=== PATIENT | male | born 1960 | race Two or more races ===

== ENCOUNTER 2023-05-07 11:41 | Inpatient (IN) | payer OTHER ==
[2023-05-07 12:30] VITALS: BMI 31.3
[2023-05-07] MEDS ORDERED: BISMUTH SUBSALICYLATE 524 MG/30 ML PO PRN (13:14)
[2023-05-07] MEDS ORDERED: ACETAMINOPHEN 325 MG TABLET (FP) PO PRN (13:14)
[2023-05-07] MEDS ORDERED: LOPERAMIDE HCL 2 MG CAPSULE PO PRN (13:14)
[2023-05-07] MEDS ORDERED: NALOXONE HCL 0.4 MG/ML VIAL IM PRN (13:14)
[2023-05-07] MEDS ORDERED: POLYETHYLENE GLYCOL (HEALTHYLAX) 3350 17 GM PACKET PO PRN (13:14)
[2023-05-07] MEDS ORDERED: IBUPROFEN 600 MG TABLET (FP) PO PRN (13:14)
[2023-05-07] MEDS ORDERED: IBUPROFEN 400 MG TABLET (FP) PO PRN (13:14)
[2023-05-07] MEDS ORDERED: NALOXONE HCL (KLOXXADO) 8 MG SPRAY NS PRN (13:14)
[2023-05-07] MEDS ORDERED: NICOTINE 10 MG CARTRIDGE (INHALER) IH PRN (13:14)
[2023-05-07] MEDS ORDERED: MAGNESIUM HYDROX 2400MG/30ML ORAL SUSPENSION 30 ML CUP PO PRN (13:14)
[2023-05-07] MEDS ORDERED: BENZONATATE 200 MG CAPSULE PO PRN (13:14)
[2023-05-07] MEDS ORDERED: ONDANSETRON *ODT* 4 MG TABLET SL PRN (13:14)
[2023-05-07] MEDS ORDERED: guaiFENesin 600 MG TABLET.ER (FP) PO PRN (13:14)
[2023-05-07] MEDS ORDERED: NICOTINE POLACRILEX 4 MG GUM BUC PRN (13:14)
[2023-05-07] MEDS ORDERED: BENZOCAINE/MENTHOL (CHLORASEPTIC ) LOZENGE MM PRN (13:14)
[2023-05-07] MEDS ORDERED: DICYCLOMINE HCL 10 MG CAPSULE PO PRN (13:14)
[2023-05-07] MEDS ORDERED: NICOTINE 21 MG/24 HOURS TOPICAL PATCH ONE (14:07)
[2023-05-07] MEDS ORDERED: PRENATAL VITAMINS W/ FOLIC ACID TABLET (FP) PO ONE (14:08)
[2023-05-07] MEDS: PRENATAL VITAMINS W/ FOLIC ACID TABLET (FP) PO SCH (14:12)
[2023-05-07] MEDS: NICOTINE 21 MG/24 HOURS TOPICAL PATCH TD SCH (14:12)
[2023-05-07] MEDS: BACITRACIN 0.9 GM PACKET TP SCH ×2 (14:38→22:41)
[2023-05-07] MEDS: THIAMINE HCL 100 MG TABLET (FP) PO SCH (22:41)
[2023-05-07] MEDS: MELATONIN 5 MG TABLETS PO SCH (22:41)
[2023-05-07] MEDS: METHOCARBAMOL 500 MG TABLET PO PRN (22:41)
[2023-05-08] MEDS: METHOCARBAMOL 500 MG TABLET PO PRN (05:48)
[2023-05-08] MEDS ORDERED: methaDONE HCL 10 MG TABLET PO ONE (07:49)
[2023-05-08] MEDS ORDERED: methaDONE 40 MG, methaDONE 10 MG PO SCH (08:45)
[2023-05-08] MEDS: PRENATAL VITAMINS W/ FOLIC ACID TABLET (FP) PO SCH (09:19)
[2023-05-08] MEDS: BACITRACIN 0.9 GM PACKET TP SCH ×2 (09:19→22:31)
[2023-05-08] MEDS ORDERED: chlordiazePOXIDE HCL 25 MG CAPSULE PO PRN (09:26)
[2023-05-08] MEDS: NICOTINE 21 MG/24 HOURS TOPICAL PATCH TD SCH (10:16)
[2023-05-08 10:39] LABS: HEMATOCRIT 40.9 % (35.4-49); HEMOGLOBIN 13.9 GM/dL (11.7-16.9); MCH 30.6 pg (25.7-33.7); MCHC 34.1 g/dl (32.0-35.9); MEAN CELL VOLUME 89.7 fl (80-96); MEAN PLT VOLUME 9.1 fl (7.5-11.1); PLATELET COUNT 250 10^3/uL (134-434); RBC 4.55 M/mm3 (4.00-5.60); RDW 13.9 % (11.9-15.9); WHITE BLOOD COUNT 8.2 K/mm3 (4.0-10.0)
[2023-05-08 10:47] LABS: POTASSIUM 3.4 mmol/L (3.5-5.1)
[2023-05-08 11:00] LABS: CALCIUM 9.4 mg/dL (8.5-10.1)
[2023-05-08 11:01] LABS: ALBUMIN 3.5 g/dl (3.4-5.0); BLOOD UREA NITROGEN 9.9 mg/dL (7-18)
[2023-05-08 11:04] LABS: CREATININE 0.9 mg/dL (0.55-1.3)
[2023-05-08 11:05] LABS: BILIRUBIN,TOTAL 0.5 mg/dL (0.2-1)
[2023-05-08 11:06] LABS: TOT PROT 7.5 g/dl (6.4-8.2)
[2023-05-08] MEDS: chlordiazePOXIDE HCL 25 MG CAPSULE PO SCH ×3 (11:07→22:32)
[2023-05-08] MEDS: MELATONIN 5 MG TABLETS PO SCH (22:32)
[2023-05-08] MEDS: THIAMINE HCL 100 MG TABLET (FP) PO SCH (22:32)
[2023-05-08] MEDS: MAG HYDROX/AL HYDROX/SIMETH 30 ML UNIT-DOSE CUP PO PRN (23:37)
[2023-05-09] MEDS: chlordiazePOXIDE HCL 25 MG CAPSULE PO SCH ×4 (05:20→22:16)
[2023-05-09] MEDS: methaDONE 40 MG, methaDONE 10 MG PO SCH (05:21)
[2023-05-09] MEDS ORDERED: methaDONE HCL 10 MG TABLET PO SCH (06:00)
[2023-05-09] MEDS: BACITRACIN 0.9 GM PACKET TP SCH ×2 (10:13→22:15)
[2023-05-09] MEDS: PRENATAL VITAMINS W/ FOLIC ACID TABLET (FP) PO SCH (10:13)
[2023-05-09] MEDS: NICOTINE 21 MG/24 HOURS TOPICAL PATCH TD SCH (10:15)
[2023-05-09] MEDS ORDERED: POTASSIUM CHLORIDE ORAL LIQUID 20 MEQ/15 ML PO ONE (13:42)
[2023-05-09] MEDS: THIAMINE HCL 100 MG TABLET (FP) PO SCH (22:16)
[2023-05-09] MEDS: MELATONIN 5 MG TABLETS PO SCH (22:16)
[2023-05-09] MEDS: METHOCARBAMOL 500 MG TABLET PO PRN (22:19)
[2023-05-10] MEDS: MAG HYDROX/AL HYDROX/SIMETH 30 ML UNIT-DOSE CUP PO PRN ×2 (01:16→21:46)
[2023-05-10] MEDS: methaDONE 40 MG, methaDONE 10 MG PO SCH (05:23)
[2023-05-10] MEDS: chlordiazePOXIDE HCL 25 MG CAPSULE PO SCH ×4 (05:23→22:24)
[2023-05-10] MEDS: BACITRACIN 0.9 GM PACKET TP SCH ×2 (10:33→22:23)
[2023-05-10] MEDS: PRENATAL VITAMINS W/ FOLIC ACID TABLET (FP) PO SCH (10:33)
[2023-05-10] MEDS: NICOTINE 21 MG/24 HOURS TOPICAL PATCH TD SCH (10:35)
[2023-05-10] MEDS: LISINOPRIL 20 MG TABLET PO SCH (14:37)
[2023-05-10] MEDS: ABACAVIR/DOLUTEGRAVIR/LAMIVUDI (TRIUMEQ) TABLET PO SCH (14:45)
[2023-05-10] MEDS: THIAMINE HCL 100 MG TABLET (FP) PO SCH (22:24)
[2023-05-10] MEDS: MELATONIN 5 MG TABLETS PO SCH (22:24)
[2023-05-11] MEDS ORDERED: chlordiazePOXIDE HCL 10 MG CAPSULE PO PRN
[2023-05-11] MEDS: chlordiazePOXIDE HCL 10 MG CAPSULE PO SCH ×4 (05:31→22:35)
[2023-05-11] MEDS: methaDONE 40 MG, methaDONE 10 MG PO SCH (05:31)
[2023-05-11] MEDS: ABACAVIR/DOLUTEGRAVIR/LAMIVUDI (TRIUMEQ) TABLET PO SCH (08:34)
[2023-05-11] MEDS: BACITRACIN 0.9 GM PACKET TP SCH ×2 (10:44→22:34)
[2023-05-11] MEDS: TAMSULOSIN HCL 0.4 MG CAP PO SCH (10:44)
[2023-05-11] MEDS: PRENATAL VITAMINS W/ FOLIC ACID TABLET (FP) PO SCH (10:45)
[2023-05-11] MEDS: NICOTINE 21 MG/24 HOURS TOPICAL PATCH TD SCH (10:45)
[2023-05-11] MEDS: LISINOPRIL 20 MG TABLET PO SCH (10:46)
[2023-05-11] MEDS: amLODIPine BESYLATE 10 MG TABLET (FP) PO SCH (10:46)
[2023-05-11] MEDS: MAG HYDROX/AL HYDROX/SIMETH 30 ML UNIT-DOSE CUP PO PRN (10:52)
[2023-05-11] MEDS: THIAMINE HCL 100 MG TABLET (FP) PO SCH (22:35)
[2023-05-11] MEDS: MELATONIN 5 MG TABLETS PO SCH (22:35)
[2023-05-11] MEDS: METHOCARBAMOL 500 MG TABLET PO PRN (22:35)
[2023-05-12] MEDS: chlordiazePOXIDE HCL 10 MG CAPSULE PO SCH ×2 (05:24→17:32)
[2023-05-12] MEDS: methaDONE 40 MG, methaDONE 10 MG PO SCH (05:25)
[2023-05-12] MEDS: ABACAVIR/DOLUTEGRAVIR/LAMIVUDI (TRIUMEQ) TABLET PO SCH (07:10)
[2023-05-12] MEDS: BACITRACIN 0.9 GM PACKET TP SCH ×2 (10:32→22:47)
[2023-05-12] MEDS: TAMSULOSIN HCL 0.4 MG CAP PO SCH (10:32)
[2023-05-12] MEDS: amLODIPine BESYLATE 10 MG TABLET (FP) PO SCH (10:32)
[2023-05-12] MEDS: LISINOPRIL 20 MG TABLET PO SCH (10:32)
[2023-05-12] MEDS: PRENATAL VITAMINS W/ FOLIC ACID TABLET (FP) PO SCH (10:32)
[2023-05-12] MEDS: NICOTINE 21 MG/24 HOURS TOPICAL PATCH TD SCH (10:33)
[2023-05-12] MEDS: MAG HYDROX/AL HYDROX/SIMETH 30 ML UNIT-DOSE CUP PO PRN ×2 (10:35→19:49)
[2023-05-12 21:06] VITALS: TEMP 97.5
[2023-05-12] MEDS: METHOCARBAMOL 500 MG TABLET PO PRN (22:50)
[2023-05-12] MEDS: THIAMINE HCL 100 MG TABLET (FP) PO SCH (22:51)
[2023-05-12] MEDS: MELATONIN 5 MG TABLETS PO SCH (22:51)
[2023-05-13] MEDS ORDERED: chlordiazePOXIDE HCL 10 MG CAPSULE PO ONE (05:00)
[2023-05-13] MEDS: methaDONE 40 MG, methaDONE 10 MG PO SCH (06:00)
[2023-05-13] MEDS: ABACAVIR/DOLUTEGRAVIR/LAMIVUDI (TRIUMEQ) TABLET PO SCH (07:52)
[2023-05-13 09:26] VITALS: BP 102/68; PULSE 88; RESP 20
[2023-05-13] MEDS: BACITRACIN 0.9 GM PACKET TP SCH (10:12)
[2023-05-13] MEDS: NICOTINE 21 MG/24 HOURS TOPICAL PATCH TD SCH (10:12)
[2023-05-13] MEDS: TAMSULOSIN HCL 0.4 MG CAP PO SCH (10:12)
[2023-05-13] MEDS: PRENATAL VITAMINS W/ FOLIC ACID TABLET (FP) PO SCH (10:12)
[2023-05-13] MEDS: LISINOPRIL 20 MG TABLET PO SCH (10:12)
[2023-05-13] MEDS: amLODIPine BESYLATE 10 MG TABLET (FP) PO SCH (10:12)
== END 2023-05-13 11:25 | disposition other institution (70) | DRG 773 ==
LOC: YASAS 11:41 → Y3N 13:48
PROVIDERS: ADMIT Allergy & Immunology; ATTEND Allergy & Immunology
PROC: HZ2ZZZZ Detoxification Services for Substance Abuse Treatment (ICD-10-PCS; principal; 2023-05-07)
DX: F10.230 Alcohol dependence with withdrawal, uncomplicated (principal); F11.120 Opioid abuse with intoxication, uncomplicated; F14.20 Cocaine dependence, uncomplicated; F12.20 Cannabis dependence, uncomplicated; F17.210 Nicotine dependence, cigarettes, uncomplicated; Z21 Asymptomatic human immunodeficiency virus [HIV] infection status; E87.6 Hypokalemia; I10 Essential (primary) hypertension; Z86.19 Personal history of other infectious and parasitic diseases
CPT/HCPCS: 36415; 80053; 84132; 85027; 86593; 86780; 87635; 87811; Q0162

== ENCOUNTER 2023-05-13 11:03 | Inpatient (IN) | payer OTHER ==
[2023-05-13 11:34] VITALS: RESP 18
[2023-05-13] MEDS ORDERED: BENZONATATE 200 MG CAPSULE PO PRN (14:20)
[2023-05-13] MEDS ORDERED: LOPERAMIDE HCL 2 MG CAPSULE PO PRN (14:20)
[2023-05-13] MEDS ORDERED: IBUPROFEN 400 MG TABLET (FP) PO PRN (14:20)
[2023-05-13] MEDS ORDERED: guaiFENesin 600 MG TABLET.ER (FP) PO PRN (14:20)
[2023-05-13] MEDS ORDERED: IBUPROFEN 600 MG TABLET (FP) PO PRN (14:20)
[2023-05-13] MEDS ORDERED: POLYETHYLENE GLYCOL (HEALTHYLAX) 3350 17 GM PACKET PO PRN (14:20)
[2023-05-13] MEDS ORDERED: MAG HYDROX/AL HYDROX/SIMETH 30 ML UNIT-DOSE CUP PO PRN (14:20)
[2023-05-13] MEDS ORDERED: COLLOIDAL OATMEAL 1 BAR EACH TP PRN (14:20)
[2023-05-13] MEDS ORDERED: NALOXONE HCL (KLOXXADO) 8 MG SPRAY NS PRN (14:20)
[2023-05-13] MEDS ORDERED: BENZOCAINE/MENTHOL (CHLORASEPTIC ) LOZENGE MM PRN (14:20)
[2023-05-13] MEDS ORDERED: NICOTINE 10 MG CARTRIDGE (INHALER) IH PRN (14:20)
[2023-05-13] MEDS ORDERED: NALOXONE HCL 0.4 MG/ML VIAL IVPUSH PRN (14:20)
[2023-05-13] MEDS ORDERED: AMMONIUM LACTATE 12% LOTION 225 GM BOTTLE TP PRN (14:20)
[2023-05-13] MEDS ORDERED: MAGNESIUM HYDROX 2400MG/30ML ORAL SUSPENSION 30 ML CUP PO PRN (14:20)
[2023-05-13] MEDS ORDERED: ACETAMINOPHEN 325 MG TABLET (FP) PO PRN (14:20)
[2023-05-13] MEDS ORDERED: METHOCARBAMOL 500 MG TABLET PO PRN (14:20)
[2023-05-13] MEDS: PRENATAL VITAMINS W/ FOLIC ACID TABLET (FP) PO SCH (14:34)
[2023-05-13] MEDS ORDERED: THIAMINE HCL 100 MG TABLET (FP) PO SCH (22:00)
[2023-05-13] MEDS ORDERED: MELATONIN 5 MG TABLETS PO SCH (22:00)
[2023-05-14] MEDS ORDERED: methaDONE 40 MG, methaDONE 10 MG PO SCH (06:00)
[2023-05-14] MEDS ORDERED: methaDONE HCL 10 MG TABLET PO SCH (06:00)
[2023-05-14 07:20] VITALS: TEMP 97.7
[2023-05-14] MEDS ORDERED: ABACAVIR/DOLUTEGRAVIR/LAMIVUDI (TRIUMEQ) TABLET PO SCH (08:00)
[2023-05-14 09:58] VITALS: BP 107/71; PULSE 97
[2023-05-14] MEDS ORDERED: amLODIPine BESYLATE 10 MG TABLET (FP) PO SCH (10:00)
[2023-05-14] MEDS ORDERED: LISINOPRIL 20 MG TABLET PO SCH (10:00)
[2023-05-14] MEDS ORDERED: BACITRACIN 0.9 GM PACKET TP SCH (10:00)
[2023-05-14] MEDS ORDERED: TAMSULOSIN HCL 0.4 MG CAP PO SCH (10:00)
[2023-05-14] MEDS: PRENATAL VITAMINS W/ FOLIC ACID TABLET (FP) PO SCH (10:29)
== END 2023-05-14 13:14 | disposition left against medical advice (07) | DRG 770 ==
LOC: YASAS 11:03 → Y3E 11:04
PROVIDERS: ADMIT Allergy & Immunology; ATTEND Psychiatry & Neurology Pain Medicine
PROC: HZ42ZZZ Group Counseling for Substance Abuse Treatment, Cognitive-Behavioral (ICD-10-PCS; principal; 2023-05-13)
DX: F10.20 Alcohol dependence, uncomplicated (principal); F14.20 Cocaine dependence, uncomplicated; F11.20 Opioid dependence, uncomplicated; F17.210 Nicotine dependence, cigarettes, uncomplicated; F41.8 Other specified anxiety disorders; Z21 Asymptomatic human immunodeficiency virus [HIV] infection status; I10 Essential (primary) hypertension; R76.8 Other specified abnormal immunological findings in serum; Z86.19 Personal history of other infectious and parasitic diseases; Z59.00 Homelessness unspecified
CPT/HCPCS: 36415; 86803; 87522

== ENCOUNTER 2025-02-27 13:51 | Inpatient (IN) | payer OTHER ==
[2025-02-27 14:28] VITALS: BMI 29.7
[2025-02-27] MEDS ORDERED: BENZOCAINE/MENTHOL (CHLORASEPTIC ) LOZENGE MM PRN (14:47)
[2025-02-27] MEDS ORDERED: guaiFENesin 600 MG TABLET.ER (FP) PO PRN (14:47)
[2025-02-27] MEDS ORDERED: IBUPROFEN 400 MG TABLET (FP) PO PRN (14:47)
[2025-02-27] MEDS ORDERED: BENZONATATE 200 MG CAPSULE PO PRN (14:47)
[2025-02-27] MEDS ORDERED: NICOTINE POLACRILEX 2 MG LOZENGE BC PRN (14:47)
[2025-02-27] MEDS ORDERED: MAGNESIUM HYDROX 2400MG/30ML ORAL SUSPENSION 30 ML CUP PO PRN (14:47)
[2025-02-27] MEDS ORDERED: POLYETHYLENE GLYCOL (HEALTHYLAX) 3350 17 GM PACKET PO PRN (14:47)
[2025-02-27] MEDS ORDERED: ACETAMINOPHEN 325 MG TABLET (FP) PO PRN (14:47)
[2025-02-27] MEDS ORDERED: NALOXONE (NARCAN) HCL 4 MG/0.1 ML SPRAY NS PRN (14:47)
[2025-02-27] MEDS ORDERED: IBUPROFEN 600 MG TABLET (FP) PO PRN (14:47)
[2025-02-27] MEDS ORDERED: LOPERAMIDE HCL 2 MG CAPSULE PO PRN (14:47)
[2025-02-27] MEDS: THIAMINE 100 MG TABLET PO SCH (21:17)
[2025-02-27] MEDS: MELATONIN 5 MG TABLETS PO SCH (21:18)
[2025-02-28 00:29] LABS: PH,URINE 5.5 (5.0-8.0); URINE APPEARANCE CLEAR; URINE BILIRUBIN NEGATIVE (NEGATIVE); URINE COLOR DK YELLOW; URINE GLUCOSE (UA) NEGATIVE (NEGATIVE); URINE KETONE TRACE (NEGATIVE); URINE LEUK ESTERASE NEGATIVE (NEGATIVE); URINE NITRITE NEGATIVE (NEGATIVE); URINE PROTEIN TRACE (NEGATIVE)
[2025-02-28] MEDS: TAMSULOSIN HCL 0.4 MG CAP PO SCH (07:59)
[2025-02-28 09:45] LABS: HEMATOCRIT 44.3 % (40.1-51.0); HEMOGLOBIN 14.4 g/dL (13.7-17.5); MCHC 32.5 g/dl (32.3-36.5); MEAN PLT VOLUME 11.4 fl (9.4-12.4); PLATELET COUNT 321 x10^3/uL (163-337); RDW 12.9 % (12.2-16.4)
[2025-02-28 09:55] LABS: POTASSIUM 3.9 mmol/L (3.5-5.1)
[2025-02-28] MEDS: ABACAVIR/DOLUTEGRAVIR/LAMIVUDI (TRIUMEQ) TABLET PO SCH (10:00)
[2025-02-28 10:28] LABS: ALBUMIN 3.5 g/dl (3.4-5.0)
[2025-02-28 10:31] LABS: CALCIUM 9.5 mg/dL (8.5-10.1)
[2025-02-28 10:32] LABS: BLOOD UREA NITROGEN 15.9 mg/dL (7-18)
[2025-02-28 10:34] LABS: CREATININE 1.1 mg/dL (0.55-1.3)
[2025-02-28 10:35] LABS: TOT PROT 8.5 g/dl (6.4-8.2)
[2025-02-28 10:37] LABS: BILIRUBIN,TOTAL 0.7 mg/dL (0.2-1)
[2025-02-28] MEDS: PRENATAL VITAMINS W/ FOLIC ACID TABLET (FP) PO SCH (11:00)
[2025-02-28] MEDS: amLODIPine BESYLATE 10 MG TABLET (FP) PO SCH (11:00)
[2025-02-28] MEDS ORDERED: methaDONE HCL 10 MG TABLET PO SCH (11:15)
[2025-02-28] MEDS: methaDONE 40 MG, methaDONE 10 MG PO ONE (13:47)
[2025-03-01] MEDS: methaDONE 40 MG, methaDONE 10 MG PO SCH (06:32)
[2025-03-05] MEDS: ACAMPROSATE CALCIUM 333 MG TABLET.DR PO SCH (14:38)
[2025-03-06 11:39] LABS: POTASSIUM 4.1 mmol/L (3.5-5.1)
[2025-03-06 11:41] LABS: CALCIUM 10.1 mg/dL (8.5-10.1)
[2025-03-06 11:42] LABS: BLOOD UREA NITROGEN 14.6 mg/dL (7-18)
[2025-03-06 11:47] LABS: CREATININE 1.3 mg/dL (0.55-1.3)
[2025-03-11] MEDS: NICOTINE POLACRILEX 2 MG GUM BUC PRN (13:44)
[2025-03-21] MEDS: MAG HYDROX/AL HYDROX/SIMETH 30 ML UNIT-DOSE CUP PO PRN (14:22)
[2025-03-27 06:24] VITALS: RESP 18; TEMP 97.3
[2025-03-27 09:12] VITALS: BP 128/65; PULSE 109
== END 2025-03-27 09:38 | disposition home or self-care (01) | DRG 772 ==
LOC: YASAS 13:51 → Y3NR 15:54 → Y3W 02-28 09:41
PROVIDERS: ADMIT Psychiatry & Neurology Pain Medicine; ATTEND Psychiatry & Neurology Pain Medicine
PROC: HZ42ZZZ Group Counseling for Substance Abuse Treatment, Cognitive-Behavioral (ICD-10-PCS; principal; 2025-02-27)
DX: F10.20 Alcohol dependence, uncomplicated (principal); F11.20 Opioid dependence, uncomplicated; F14.10 Cocaine abuse, uncomplicated; F17.210 Nicotine dependence, cigarettes, uncomplicated; Z21 Asymptomatic human immunodeficiency virus [HIV] infection status; I10 Essential (primary) hypertension; N40.0 Benign prostatic hyperplasia without lower urinary tract symptoms; R26.89 Other abnormalities of gait and mobility; Z79.899 Other long term (current) drug therapy; Z86.19 Personal history of other infectious and parasitic diseases
CPT/HCPCS: 36415; 80048; 80053; 80305; 80307; 81003; 82962; 85027; 86593; 86780; 87811; 93005; 93010